=== PATIENT | male | born 1955 | race Hispanic/Latino ===

== ENCOUNTER 2022-02-09 20:12 | Emergency (ER) | payer MEDICARE, OTHER ==
[2022-02-09] MEDS ORDERED: LORazepam 2 MG/ML VIAL IM ONE (22:10)
--- NOTE | 2022-02-09 22:12 | Emergency Department Report ---
ED Medical Clearance HPI - General Chief complaint: Medical Clearance Stated complaint: MEDICAL CLEARANCE Time Seen by Provider: 02/09/22 22:06 Source: patient Mode of arrival: Ambulatory Limitations: No Limitations - History of Present Illness Initial comments: Patient is a 67-year-old male that presents emergency room with complaints of needing medical clearance for detox. Patient states he is already contacted [facility] and [facility] wants him to be medically cleared in emergency room and that he could be admitted to [facility] directly. Patient states he is feeling anxious and shaky. Patient denies seizure. Patient states that he has been drinking for 40+ years. Patient states that his last drink was at 3:30 in the afternoon. Patient states he drank this morning in order to take the edge off. Patient states she had a lot of stress lately. Patient states he was recently diagnosed with stage IV esophageal cancer and is undergoing treatment for that. Patient states that he has had multiple PEs and clots secondary to the cancer and is currently on appropriate anticoagulation and is compliant with all of his medications. Patient denies chest pain. Patient denies shortness of breath. Patient denies headache. Patient denies dizziness. Patient denies recent travel. Patient denies recent international travel. Patient denies exposure to the novel coronavirus. Patient denies sick contacts. Patient denies fever and chills. Patient denies cough. Patient denies diarrhea. Patient denies coming in contact with anybody with symptoms of the novel coronavirus. Complaint: medical clearance request -: Sudden Reason for Medical Clearance: intoxication Alledged Intoxication: No Compliant with Home Medications: Yes Traumatic Symptoms: denies traumatic injury Associated Symptoms: other (Anxiety) Treatments Prior to Arrival: none Allergies/Adverse reactions: Allergies Allergy/AdvReac Type Severity Reaction Status Date / Time No Known Allergies Allergy Unverified 02/09/22 21:33 ED Review of Systems ROS: Stated complaint: MEDICAL CLEARANCE Other details as noted in HPI Constitutional: denies: chills, fever Eyes: denies: eye pain, eye discharge, vision change ENT: denies: ear pain, throat pain Respiratory: denies: cough, shortness of breath, wheezing Cardiovascular: denies: chest pain, palpitations Endocrine: no symptoms reported Gastrointestinal: denies: abdominal pain, nausea, diarrhea Genitourinary: denies: urgency, dysuria Musculoskeletal: denies: back pain, joint swelling, arthralgia Skin: denies: rash, lesions Neurological: denies: headache, weakness, paresthesias Psychiatric: anxiety. denies: depression Hematological/Lymphatic: denies: easy bleeding, easy bruising ED Past Medical Hx - Past Medical History Previous Medical History?: Yes Hx Deep Vein Thrombosis: Yes Hx Pulmonary Embolism: Yes Hx of Cancer: Yes (OROPHARYNGEAL CARCINOMA) - Surgical History Past Surgical History?: Yes Additional Surgical History: LUMBAR COMPRESSION APPROX MID DECEMBER 2021 - Family History Family history: no significant - Social History Smoking Status: Former Smoker Substance Use Type: Alcohol ED Physical Exam - General Limitations: No Limitations General appearance: alert, in no apparent distress - Head Head exam: Present: atraumatic, normocephalic - Eye Eye exam: Present: normal appearance - ENT ENT exam: Present: mucous membranes moist - Neck Neck exam: Present: normal inspection - Respiratory Respiratory exam: Present: normal lung sounds bilaterally. Absent: respiratory distress, wheezes - Cardiovascular Cardiovascular Exam: Present: regular rate, normal rhythm. Absent: systolic murmur, diastolic murmur, rubs, gallop - GI/Abdominal GI/Abdominal exam: Present: soft, normal bowel sounds - Rectal Rectal exam: Present: deferred - Extremities Exam Extremities exam: Present: normal inspection - Back Exam Back exam: Present: normal inspection - Neurological Exam Neurological exam: Present: alert, oriented X3 - Psychiatric Psychiatric exam: Present: anxious - Skin Skin exam: Present: warm, dry, intact, normal color. Absent: rash ED Course Vital Signs 02/09/22 02/09/22 21:31 22:45 Temperature 98.5 F Pulse Rate 109 H Respiratory 18 18 Rate Blood Pressure 121/77 O2 Sat by Pulse 90 98 Oximetry - Reevaluation(s) Reevaluation #1: Patient answering questions appropriately. Patient is alert and oriented x4. Patient is stable for discharge. Patient is medically cleared. I discussed all results and clinical findings with patient. I discussed plan of care with patient. Patient agrees with plan of care. Patient is stable for discharge. Patient will be discharged and go directly to [facility] Patient given discharge instructions. Patient voiced understanding of discharge ins tructions. 02/09/22 23:21 ED Medical Decision Making - Lab Data Result diagrams: 02/09/22 21:58 02/09/22 21:58 - Medical Decision Making Patient is a 67-year-old male who presents emergency room for medical clearance for detox. Patient has been accepted to [facility] and just needs medical clearance. Patient had labs done. Patient's labs are essentially markable except for elevated alcohol level. Patient is sound mind and body. Patient answering questions verbally. Patient clinically sober and appropriate for discharge to go via private vehicle by his family member to [facility]. Patient states he is going to go by a family member. Patient does not require further emergency medical services. Patient not require inpatient services. Patient is medically cleared for admission and to a rehab facility for detox. Patient encouraged to go directly to the detox facility of [facility]. - Differential Diagnosis Detox, alcohol intoxication, alcohol abuse. ED Disposition Clinical Impression: Desire for detoxification, Anxiety, Medical clearance for psychiatric admission Acute alcohol intoxication Qualifiers: Complication of substance-induced condition: uncomplicated Qualified Code(s): F10.920 - Alcohol use, unspecified with intoxication, uncomplicated Disposition: HOME / SELF CARE / HOMELESS Is pt being admited?: No Does the pt Need Aspirin: No Condition: Stable Instructions: Managing Anxiety, Adult, Medical Screening Exam, Alcohol Use Disorder, Alcohol Intoxication, [id number] Additional Instructions: Patient to follow-up with primary care in 2 to 3 days. Patient to discharge from the ER and go directly to [facility]. Patient to rest. Patient to increase water. Patient to return to the ER if condition worsens, changes or new symptoms arise. Referrals: PANCHO SOUSA MD [Primary Care Provider] - 2-3 Days Time of Disposition: 23:25
[2022-02-09 22:29] LABS: BUN/Creatinine Ratio 13; Blood Urea Nitrogen 12 mg/dL (9-20); Calcium 9.4 mg/dL (8.4-10.2); Hemolysis Index 2
[2022-02-09 22:33] LABS: Basophils # (Auto) 0.1 K/mm3 (0.0-0.1); Basophils % (Auto) 1.5 % (0.0-1.8); Eosinophils # (Auto) 0.1 K/mm3 (0.0-0.4); Eosinophils % (Auto) 3.1 % (0.0-4.3); Hematocrit 35.9 % (35.5-45.6); Hemoglobin 11.1 gm/dl (11.8-15.2); Lymphocytes # (Auto) 1.3 K/mm3 (1.2-5.4); Lymphocytes % (Auto) 28.8 % (13.4-35.0); Mean Corpuscular HGB Conc 31 % (32-34); Mean Corpuscular Volume 77 fl (84-94); Monocytes # (Auto) 0.4 K/mm3 (0.0-0.8); Monocytes % (Auto) 9.4 % (0.0-7.3); Platelet Count 254 K/mm3 (140-440); Red Blood Count 4.63 M/mm3 (3.65-5.03)
[2022-02-09 22:35] LABS: Red Cell Distribution Width 21.4 % (13.2-15.2)
[2022-02-09 23:41] VITALS: BP 122/86
== END 2022-02-09 23:40 | disposition home or self-care (01) ==
LOC: ED 20:12
DX: F41.9 Anxiety disorder, unspecified (principal); F10.129 Alcohol abuse with intoxication, unspecified; Z13.30 Encounter for screening examination for mental health and behavioral disorders, unspecified; I26.99 Other pulmonary embolism without acute cor pulmonale; I82.409 Acute embolism and thrombosis of unspecified deep veins of unspecified lower extremity; Z85.9 Personal history of malignant neoplasm, unspecified; Z98.890 Other specified postprocedural states; Z87.891 Personal history of nicotine dependence
CPT/HCPCS: 36415; 80048; 85025; 96372; 99283; J2060; 80320; G0480